=== PATIENT | male | born 1965 | race Caucasian/White ===

== ENCOUNTER 2017-02-25 08:43 | Emergency (ER) | payer SELFPAY ==
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
[2017-02-25 10:00] LABS: ABSOLUTE BASOPHILS # (AUTO) 0.1 10^3/uL (0.0-0.2); ABSOLUTE EOSINOPHILS # (AUTO) 0.2 10^3/uL (0.0-0.6); ABSOLUTE LYMPHOCYTES (AUTO) 1.4 10^3/uL (0.5-4.7); ABSOLUTE MONOCYTES (AUTO) 0.8 10^3/uL (0.1-1.4); ABSOLUTE NEUT (AUTO) 5.4 10^3/uL (1.7-8.2); BASOPHILS % (AUTO) 1.2 % (0-2); EOSINOPHILS % (AUTO) 2.5 % (0-6); HEMATOCRIT 48.1 % (37.9-51.0); HEMOGLOBIN 16.5 g/dL (13.5-17.0); HGB HCT DIFFERENCE 1.4; LYMPHOCYTES % (AUTO) 17.6 % (13-45); MEAN CORPUSCULAR HEMOGLOBIN 30.8 pg (27.0-33.4); MEAN CORPUSCULAR HGB CONC 34.2 g/dL (32.0-36.0); MEAN CORPUSCULAR VOLUME 90 fl (80-97); MONOCYTES % (AUTO) 9.6 % (3-13); RED BLOOD COUNT 5.34 10^6/uL (4.35-5.55); RED CELL DISTRIBUTION WIDTH 13.6 % (11.5-14.0); SEGMENTED NEUTROPHILS % (AUTO) 69.1 % (42-78); WHITE BLOOD COUNT 7.8 10^3/uL (4.0-10.5)
[2017-02-25 10:14] LABS: ANION GAP 15 (5-19); BLOOD UREA NITROGEN 12 mg/dL (7-20); CALCIUM 9.5 mg/dL (8.4-10.2); CARBON DIOXIDE 21 mmol/L (22-30); CHLORIDE 108 mmol/L (98-107); CREATININE RESULT 0.83 mg/dL (0.52-1.25); GLUCOSE 89 mg/dL (75-110); POTASSIUM 4.3 mmol/L (3.6-5.0); SODIUM 144.3 mmol/L (137-145)
--- NOTE | 2017-02-25 11:13 | RADIOLOGY REPORT (SQ) ---
EXAM DESCRIPTION: CT ABD/PELVIS WITH IV ONLY COMPLETED DATE/TIME: 02/25/2017 10:48 am REASON FOR STUDY: severe low back and left abdominal pain COMPARISON: None. TECHNIQUE: CT scan of the abdomen and pelvis performed using helical scanning technique with dynamic intravenous contrast injection. No oral contrast. Images reviewed with lung, soft tissue, and bone windows. Reconstructed coronal and sagittal MPR images reviewed. Delayed images for evaluation of the urinary system also acquired. All images stored on PACS. All CT scanners at this facility use dose modulation, iterative reconstruction, and/or weight based d osing when appropriate to reduce radiation dose to as low as reasonably achievable (ALARA). [facility]: Dose Right [facility]: CareDose [facility]: Dose Right [facility]: Teradose 4D [facility]: [email or web address] CONTRAST TYPE AND DOSE: contrast/concentration: Isovue 370.00 mg/ml; Total Contrast Delivered: 98.0 ml; Total Saline Delivered: 62.0 ml RENAL FUNCTION: Creatinine 0.8 BUN 12 RADIATION DOSE: Up-to-date CT equipment and radiation dose reduction techniques were employed. CTDIv ol: 19.8 - 20.9 mGy. DLP: 2328 mGy-cm.. LIMITATIONS: None. FINDINGS: LOWER CHEST: No significant findings. No nodules or infiltrates. LIVER: There is diffuse decreased attenuation throughout the liver. The liver is homogeneous. No ma sses are seen. SPLEEN: Normal size. No focal lesions. PANCREAS: No masses. No significant calcifications. No adjacent inflammation or peripancreatic fluid collections. Pancreatic duct not dilated. GALLBLADDER: No identified stones by CT criteria. No inflammatory changes to suggest cholecystitis. ADRENAL GLANDS: No significant masses or asymmetry. RIGHT KIDNEY AND URETER: No solid masses. No significant calcifications. No hydronephrosis or hyd roureter. LEFT KIDNEY AND URETER: No solid masses. 2 small cortical cysts are present. No significant calcif ications. No hydronephrosis or hydroureter. AORTA AND VESSELS: No aneurysm. No dissection. Renal arteries, SMA, celiac without stenosis. RETROPERITONEUM: No retroperitoneal adenopathy, hemorrhage or masses. BOWEL AND PERITONEAL CAVITY: No masses or inflammatory changes. No free fluid or peritoneal masses. APPENDIX: Not identified. PELVIS: No mass. No free fluid. Normal bladder. ABDOMINAL WALL: No masses. No hernias. BONES: Thoracolumbar spondylosis with bridging osteophytes in lower thoracic spine in prominent upper lumbar osteophytes. OTHER: No other significant finding. IMPRESSION: 1. There is some degree of fatty infiltration of the liver. 2. Findings as described. There are no findings that particularly explain the patient's pain. TECHNICAL DOCUMENTATION: JOB ID: [id number] Quality ID # [id number]: Final reports with documentation of one or more dose reduction techniques (e.g., Au tomated exposure control, adjustment of the mA and/or kV according to patient size, use of iterative reconstruction technique) 2010 [employer]- All Rights Reserved
[2017-02-25] MEDS ORDERED: DEXAMETHASONE SOD PHOS INJ 10 MG/1 ML VIAL IV ONE (11:25)
[2017-02-25] MEDS ORDERED: KETOROLAC TROMETHAMINE INJ/PF 30 MG/1 ML SDV IV ONE (11:25)
[2017-02-25 12:09] VITALS: BP 148/84
== END 2017-02-25 12:09 | disposition home or self-care (01) ==
LOC: ER 08:43
DX: M54.42 Lumbago with sciatica, left side (principal); M54.9 Dorsalgia, unspecified; M54.5 Low back pain; M79.605 Pain in left leg; R10.9 Unspecified abdominal pain; G89.29 Other chronic pain
CPT/HCPCS: 99284; 96374; 96375; 36415; 85025; 80048; 74177; J1885; J1100

== ENCOUNTER 2017-12-11 02:42 | Emergency (ER) | payer SELFPAY ==
[2017-12-11 02:54] VITALS: BP 160/63
[2017-12-11] MEDS ORDERED: KETOROLAC TROMETHAMINE INJ/PF 30 MG/1 ML SDV IM ONE (03:16)
[2017-12-11] MEDS ORDERED: DEXAMETHASONE SOD PHOS INJ 10 MG/1 ML VIAL IM ONE (03:16)
[2017-12-11] MEDS ORDERED: HYDROCODONE/ACETAMINOPHEN 5-325 MG (6 TAB/ER DISP) PO PRN (03:36)
--- NOTE | 2017-12-11 03:43 | ER Document Report ---
ED General - General Chief Complaint: Leg Pain Stated Complaint: LEG PAIN Time Seen by Provider: 12/11/17 03:10 Notes: Patient is a 52-year-old male who presents with complaint of sciatica. He has history of chronic recurrent sciatica. Says he has pain starts in his right buttocks and goes down the back of his right leg. 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 He has not seen a doctor about this other than being seen here in the ER several months ago. He has taken Motrin at home but says is not helping the pain. He is able stand and walk. No loss of bowel control. No urine retention. No weakness or numbness into his leg. Says the pain radiates down the back of his thigh approximately midway down his thigh. No new injuries. TRAVEL OUTSIDE OF THE [place] IN LAST 30 DAYS: No - Related Data Allergies/Adverse Reactions: No Known Allergies Allergy (Verified 02/28/17 09:34) Past Medical History - Social History Smoking Status: Unknown if Ever Smoked Frequency of alcohol use: None Drug Abuse: None Family History: CAD, Hyperlipidemia, Hypertension, Malignancy. denies: Arthritis, COPD, CVA, DM, Thyroid Disfunction Patient has suicidal ideation: No Patient has homicidal ideation: No Renal/ Medical History: Denies: Hx Peritoneal Dialysis Musculoskeletal Medical History: Reports Hx Arthritis, Reports Hx Musculoskeletal Deformity, Reports Hx Musculoskeletal Trauma Traumatic Medical History: Reports: Hx Fractures - Left clavicle Review of Systems - Review of Systems Notes: My Normal Review Basic REVIEW OF SYSTEMS: CONSTITUTIONAL : Denies fever, chills, or sweats. Denies recent illness. CARDIOVASCULAR: Denies chest pain. RESPIRATORY: Denies cough, cold, or chest congestion. Denies shortness of breath, difficulty breathing, or wheezing. GASTROINTESTINAL: Denies abdominal pain. Denies nausea, vomiting, or diarrhea. GENITOURINARY: Denies difficulty urinating, painful urination, burning, frequency, or blood in urine. MUSCULOSKELETAL: Low back pain radiating into right leg. SKIN: Denies rash or skin lesions. NEUROLOGICAL: Denies sensory or motor loss. ALL OTHER SYSTEMS REVIEWED AND NEGATIVE. Physical Exam - Vital signs Vitals: Temp Pulse Resp BP Pulse Ox 97.6 F 61 20 160/63 H 97 12/11/17 02:52 12/11/17 02:52 12/11/17 02:52 12/11/17 02:52 12/11/17 02:52 - Notes Notes: General Appearance: Well nourished, alert, cooperative, no acute distress, moderate obvious discomfort. Vitals: reviewed, See vital signs table. Head: no swelling or tenderness to the head Eyes: PERRL, EOMI, Conjuctiva clear Mouth: No decreasd moisture Abdomen: Normal BS, soft, No rigidity, No abdominal tenderness, No guarding, no rebound, no abdominal masses, no organomegaly Back: Pain palpation mainly over the right gluteal area over the piriformis muscle. When I push there it seems to trigger the pain that goes down his leg. Extremities: strength 5/5 in all extremities, good pulses in all extremities, no swelling or tenderness in the extremities, no edema. Skin: warm, dry, appropriate color, no rash Neuro: speech clear, oriented x 3, normal affect, responds appropriately to questions. She is able stand. He does have some pain with bearing weight but is able to do so. He has good strength with plantar dorsiflexion against resistance. Good distal sensation to his foot. Course - Re-evaluation Re-evalutation: 12/11/17 05:33 Patient given a shot of Toradol and Decadron. I gave him a small bottle of [place] to go home with. I talked at length about the need to follow-up with primary care doctor to establish continued care for this as well as to talk about getting physical therapy as this would most likely be beneficial for him. I did write a work note for the patient. Patient to return to ER if he has worsening pain, leg weakness or numbness, loss of bowel control, or urinary retention. Patient agrees with plan will be discharged home. Dictation of this chart was performed using voice recognition software; therefore, there may be some unintended grammatical errors. - Vital Signs Vital signs: Temp Pulse Resp BP Pulse Ox 97.6 F 61 20 160/63 H 97 12/11/17 02:52 12/11/17 02:52 12/11/17 02:52 12/11/17 02:52 12/11/17 02:52 Discharge - Discharge Clinical Impression: Sciatic leg pain Condition: Good Disposition: HOME, SELF-CARE Additional Instructions: LOW BACK PAIN: Three out of every four people will have an episode of disabling back pain during their lifetime. Most commonly the pain is due to straining of the muscles and ligaments in the low back. Usual treatment includes: (1) Rest on a firm surface. Avoid lying on your stomach. (2) Ice pack the painful area. After a few days, gentle heat may be used intermittently to relax the area, or ice packs can be continued. (3) Medication may be needed -- muscle relaxers and antiinflammatory medicines are commonly used. (4) As the back improves, exercises are prescribed to strengthen the back and abdominal muscles. Your doctor will advise you on the proper care for your back at each stage in your recovery. You may be better in a few days -- or healing may take several weeks. If new symptoms of a "herniated disc" (radiation of pain, numbness, or tingling down the back of the leg or weakness in the leg) occur, you should be re-examined. Further testing may be necessary. ORAL NARCOTIC MEDICATION: You have been given a prescription for pain control. This medication is a narcotic. It's best taken with food, as nausea can result if taken on an empty stomach. Don't operate machinery or drive within six hours of taking this medication. Do not combine this medicine with alcohol, or with any medication which can cause sedation (such as cold tablets or sleeping pills) unless you get permission from the physician. Narcotics tend to cause constipation. If possible, drink plenty of fluids and eat a diet high in fiber and fruits. Please be aware that prescription narcotics also have the potential for abuse. People become addicted to these medications because of the general sense of wellbeing that they induce. This feeling along with a significant reduction in tension, anxiety, and aggression provides a stimulating seductive quality to these drugs. Once your pain is under control, we encourage you to discard your unused narcotics. ICE PACKS: Apply ice packs frequently against the painful area. Many different schedules are recommended, such as "20 minutes on, 20 minutes off" or "one hour ice, two hours rest." If you need to work, you may need to go longer between ice treatments. You should plan to have the area ice packed AT LEAST one fourth of the time. The ice should be applied over the wrap, tape, or splint, or over a layer of cloth -- not directly against the skin. Some ice bags have a built-in cloth and can be put directly on the skin. WARM PACKS: After approximately two days, apply gentle heat (such as a heating pad or hot water bottle) for about 20 to 30 minutes about every two hours -- at least four times daily. Warmth and elevation will help you make a more rapid recovery , and will ease the pain considerably. Do not use HOT heat, and never apply heat for longer than 30 minutes. The continuous heat can invisibly damage skin and muscles -- even when no burn is seen on the surface. Damaged muscles can make you MORE sore. FOLLOW-UP CARE: If you have been referred to a physician for follow-up care, call the physician s office for an appointment as you were instructed or within the next two days. If you experience worsening or a significant change in your symptoms, notify the physician immediately or return to the Emergency Department at any time for re-evaluation. Please make an appointment to see a primary care doctor for further pain control and also for referral to physical therapy. Physical therapy typically is very useful in the treatment of sciatica. Take Tylenol and Motrin for pain and inflammation. Please be aware that [employer] does have Tylenol (acetaminophen) in it. Please make sure you do not take more than 4000 mg of acetaminophen a day. Do not drive or care for children after you have taken this medication they will make you sleepy and sometimes impair judgment. Please return to the ER immediately if you develop leg weakness, numbness, loss of bowel control, or inability to urinate. Forms: Return to Work
== END 2017-12-11 03:55 | disposition home or self-care (01) ==
LOC: ER 02:42
DX: M54.31 Sciatica, right side (principal)
CPT/HCPCS: 99283; 96372; J1885; J1100

== ENCOUNTER 2017-12-24 12:03 | Emergency (ER) | payer SELFPAY ==
--- NOTE | 2017-12-24 12:18 | ER Document Report ---
HPI - HPI Patient complains to provider of: right leg pain Onset: Other Pain Level: 5 Context: Presents emergency department with complaints of right leg pain. Patient reports a few weeks ago he drove to [place] and he wore new shoes came back and his right calf was hurting. He reports pain radiates from his low back down his right leg. He complains that he cannot even drive because when he extends and flexes his foot his right calf hurts. Denies history of DVTs. Reports he had the same kind of pain a few years ago on his left side that went away eventually after medication treatment. He did see a chiropractor at that time but quit going because it did not help. Reports hx of disc issues. Denies other symptoms such as fever vomiting diarrhea. He was here a few weeks ago and was treated with steroids and pain medication and Toradol. He reports it took the edge off the pain a little but still having pain. He did not follow up with a pcp. Denies urinary or bowel incontinence or retention. 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 denies: Arthritis, COPD, CVA, DM, Thyroid Disfunction Patient has suicidal ideation: No Patient has homicidal ideation: No - Past Medical History Cardiac Medical History: Denies: Hx DVT Renal/ Medical History: Denies: Hx Peritoneal Dialysis Musculoskeletal Medical History: Reports Hx Arthritis, Reports Hx Musculoskeletal Deformity, Reports Hx Musculoskeletal Trauma Traumatic Medical History: Reports: Hx Fractures - Left clavicle Surgical Hx: Negative Vertical Provider Document - CONSTITUTIONAL Agree With Documented VS: Yes Exam Limitations: No Limitations General Appearance: WD/WN, Mild Distress - Winces with palaption to RLL - INFECTION CONTROL TRAVEL OUTSIDE OF THE [place] IN LAST 30 DAYS: No - HEENT HEENT: Atraumatic, Normocephalic - NECK Neck: Normal Inspection, Supple - RESPIRATORY Respiratory: No Respiratory Distress - CARDIOVASCULAR Cardiovascular: Regular Rate - BACK Back: Normal Inspection - Obvious deformity no swelling no erythema no warmth good distal movement sensation. negative: CVA Tenderness-Right, CVA Tenderness- Left - MUSCULOSKELETAL/EXTREMETIES Musculoskeletal/Extremeties: MAEW, FROM, Tender - Right lower leg calf tender to palpation no erythema no warmth no obvious swelling positive Homans good pedal pulse good cap refill - NEURO Level of Consciousness: Awake, Alert, Appropriate Motor/Sensory: No Motor Deficit - DERM Integumentary: Warm, Dry Adult Front & Back Diagram: 1 - Reports pain 2 - Reports radiating pain Course - Re-evaluation Re-evalutation: 12/24/17 12:49 Patient instructed on Doppler just to rule out DVT. Calf measurements completed , equal bilaterally 12/24/17 13:27 Patient reports Toradol did not help his pain at all Percocet ordered. He reports he will call his to pick him up. 12/24/17 14:28 Doppler negative, patient instructed instructed on medications instructed to follow-up with primary care provider. He reports that Percocet helped his pain. - Vital Signs Vital signs: Temp Pulse Resp BP Pulse Ox 97.9 F 74 20 183/70 H 98 12/24/17 12:06 12/24/17 12:06 12/24/17 12:06 12/24/17 12:06 12/24/17 12:06 - Diagnostic Test Radiology reviewed: Reports reviewed - No DVT Discharge - Discharge Clinical Impression: Leg pain, right Low back pain Qualifiers: Chronicity: unspecified Back pain laterality: right Sciatica presence: with sciatica Sciatica laterality: sciatica of right side Qualified Code(s): M54.41 - Lumbago with sciatica, right side Sciatica Qualifiers: Laterality: right Qualified Code(s): M54.31 - Sciatica, right side Condition: Stable Disposition: HOME, SELF-CARE Instructions: Family Physicians / Practices, Oral Narcotic Medication ([facility]), Sciatica ([facility]), Toradol Injection ([facility]) Additional Instructions: *You have been evaluated for back pain, leg pain, sciatica *Take medication as prescribed *Rest *Follow up with a primary care provider within one week *Return to ED for worsening condition, changes, needs, urinary/bowel concerns Monitor your blood pressure. Your blood pressure was elevated today. This may be because you were anxious, in pain or because you need medication. It is important to follow up with your primary care provider for full evaluation. Prescriptions: Oxycodone HCl/Acetaminophen [Percocet 5-325 mg Tablet] 1 tab PO ASDIR PRN #15 tablet PRN Reason: Forms: Elevated Blood Pressure
[2017-12-24] MEDS ORDERED: KETOROLAC TROMETHAMINE 60 MG/2 ML SDV IM ONE (12:34)
[2017-12-24] MEDS ORDERED: OXYCODONE-ACETAMINOPHEN 5-325 MG TABLET PO ONE (13:26)
[2017-12-24 15:11] VITALS: BP 165/72
--- NOTE | 2017-12-24 16:34 | XCELERA REPORT ---
[address] [facility] [address] Lower Extremity Venous Evaluation Procedure: Color flow and duplex imaging of the veins of the right lower extremity as well as the left Common Femoral vein. Right Sided Venous Evaluation Normal vessel filling wall to wall, compression and augmentation as well as Colour flow down to the infrageniculate veins. Left Sided Venous Evaluation The left common femoral vein is fully compressible. Spontaneous and phasic flow is present in the left common femoral vein. Interpretation Summary No duplex evidence of DVT or obstruction in the right lower extremity nor in the left Common Femoral vein. Name: COLINCECELIA JONO E Age: 52 yrs Gender: Male : 1965 Patient Status: Emergency Patient Location: ER Study Date: 12/24/2017 02:04 PM Reason For Study: right lower leg pain Ordering Physician: СЕРГЕЙ DOMINIQUE Performed By: Manuela Amador : СЕРГЕЙ DOMINIQUE > Stu Jackson
== END 2017-12-24 15:09 | disposition home or self-care (01) ==
LOC: ER 12:03
DX: M79.604 Pain in right leg (principal); M54.41 Lumbago with sciatica, right side; M54.31 Sciatica, right side
CPT/HCPCS: 99284; 96372; 93971 ×2; J1885